=== PATIENT | male | born 2000 | race Caucasian/White ===

== ENCOUNTER 2024-04-01 15:47 | Emergency (ER) | payer SELFPAY ==
--- NOTE | ~2024-04-01 | CT_ITS ---
EXAMINATION: CT brain wo con DATE: 04/01/2024 16:40 INDICATION: Headache. TECHNIQUE: Computed tomography (CT) of the head was performed without intravenous contrast. The mA wa s adjusted according to patient size. Iterative reconstruction technique was employed. The dose-lengt h product was 605.33 mGy-cm. COMPARISON: None FINDINGS: There is no intracranial hemorrhage, acute infarction, or abnormal intracranial mass lesion . The ventricles are normal in size. There is mild mucosal thickening in the ethmoid sinuses. There i s a left mastoid effusion. There are effusions of the tympanic cavities bilaterally. There is materia l in the external auditory canals. IMPRESSION: 1. Normal brain. 2. Material in the external auditory canals. Correlate clinically for otitis externa. 3. Material in the tympanic cavities. Correlate clinically for otitis media. Reviewed, dictated and finalized at location E. IMPRESSION: 1. Normal brain. 2. Material in the external auditory canals. Correlate clinically for otitis ex terna. 3. Material in the tympanic cavities. Correlate clinically for otitis media.
[2024-04-01 16:09] VITALS: BP 160/93; PULSE 125; RESP 16; TEMP 36.6; O2SAT 98
--- NOTE | 2024-04-01 16:29 | ED.EAR ---
HPI - Ear Problem General Chief complaint: Ear Stated complaint: SORIANO, bilateral ear pain, drainage, swelling Time Seen by Provider: 04/01/24 15:58 History of Present Illness HPI Narrative: 23-year-old male presenting to the emergency department for evaluation for bilateral otitis media. Patient states symptoms started approximately a week ago. Patient did have follow-up at urgent care was started on amoxicillin. Patient states that the symptoms have spread to both ears, patient does have associated headache. Patient denies use of your protection at work and denies prolonged use of headphones at home. Patient has no prior history of otitis media. Patient has no significant history of headache or migraine. Related Data Allergies Allergy/AdvReac Type Severity Reaction Status Date / Time No Known Allergies Allergy Verified 04/01/24 16:39 Review of Systems Review of Systems: All systems reviewed & are unremarkable except as noted in HPI and below Exam Narrative: APPEARANCE: Well appearing, no pain, no distress, well-nourished. HEAD: normocephalic, atraumatic. EYES: PERRLA/EOMI, conjunctivae clear. NOSE: Normal no drainage EARS: TMs obstructed bilaterally due to purulent drainage THROAT: Pharynx clear, no exudate. NECK: Supple. No adenopathy, no masses. RESPIRATORY: Airway patent, respirations nonlabored. Clear to auscultation bilaterally, no rales, rhonchi, wheezing. CARDIOVASCULAR: Regular rate and rhythm without murmurs rubs or gallops. ABDOMINAL: Soft, nontender, nondistended, normal bowel sounds MUSCULOSKELETAL: Moves all extremities. Strength/ROM intact, No edema, No calf tenderness. NEURO: Alert. Cranial nerves II through XII intact. Good gait. Good coordination SKIN: Warm, dry. Normal Color PSYCHIATRIC: Normal affect/mood. Course Vital Signs Vital signs: Vital Signs Temperature 97.9 F 04/01/24 16:09 Pulse Rate 125 H 04/01/24 16:09 Respiratory Rate 16 04/01/24 16:09 Blood Pressure 160/93 H 04/01/24 16:09 Pulse Oximetry 98 04/01/24 16:09 Oxygen Delivery Room Air 04/01/24 16:09 Temperature 97.9 F 04/01/24 17:30 Pulse Rate 96 04/01/24 17:30 Respiratory Rate 16 04/01/24 17:30 Blood Pressure 150/89 H 04/01/24 17:30 Pulse Oximetry 100 04/01/24 17:30 Oxygen Delivery Room Air 04/01/24 16:09 Medical Decision Making [facility] Narrative Medical decision making narrative: 23-year-old male presents emergency department for evaluation of headache and bilateral ear pain with discharge. Patient is afebrile with a leukocytosis of 11.4 no acute abnormalities on his CMP head CT showed no evidence of mastoiditis but did show evidence of otitis media otitis externa. Patient was started on antibiotics in the emergency department. Patient was also provided outpatient follow-up with ENT. On re-evaluation patient states his headache is resolved. Differential Diagnosis Differential Diagnosis: Headache, migraine, otitis media, otitis externa, mastoiditis Vital Signs Vital Signs: Vital Signs Temperature 97.9 F 04/01/24 16:09 Pulse Rate 125 H 04/01/24 16:09 Respiratory Rate 16 04/01/24 16:09 Blood Pressure 160/93 H 04/01/24 16:09 Pulse Oximetry 98 04/01/24 16:09 Oxygen Delivery Room Air 04/01/24 16:09 Temperature 97.9 F 04/01/24 17:30 Pulse Rate 96 04/01/24 17:30 Respiratory Rate 16 04/01/24 17:30 Blood Pressure 150/89 H 04/01/24 17:30 Pulse Oximetry 100 04/01/24 17:30 Oxygen Delivery Room Air 04/01/24 16:09 Lab Data Lab results reviewed: Yes I reviewed the patient's lab results. 04/01/24 16:56 04/01/24 16:56 Labs: Lab Results 04/01/24 Range/Units 16:56 WBC 11.4 H (4.5-10.0) K/mm3 RBC 4.77 (4.6-6.20) M/mm3 Hgb 14.4 (14.0-18.0) g/dL Hct 42.2 (42.0-52.0) % MCV 88.5 (80-100) fl MCH 30.2 (26-34) pg MCHC 34.1 (32-36) g/dl RDW 11.2 L (11.5-14.5) % Plt Count 269 (150-375) k/mm3 M
[2024-04-01 16:30] VITALS: BP 148/95; PULSE 113; RESP 16; TEMP 36.7; O2SAT 100
[2024-04-01] MEDS: diphenhydrAMINE HCl INJ 50 MG/ML VIAL 25 MG IV PUSH (16:40)
[2024-04-01] MEDS: PROCHLORPERAZINE EDISYLATE 10 MG/2 ML VIAL IV PUSH (16:40)
[2024-04-01] MEDS: SODIUM CHLORIDE 0.9% IV 1,000 ML 999 ML IV CONT (16:41)
[2024-04-01] MEDS: HYDROmorphone HCL INJ (*CRX) 1 MG/ML SYR 0.5 MG IV PUSH (16:41)
[2024-04-01 17:03] LABS: Basophils Percent Auto 0.3 % (0.2-1.2); Eosinophils Percent Auto 0.1 % (0-4.4); Hematocrit 42.2 % (42.0-52.0); Hemoglobin 14.4 g/dL (14.0-18.0); Immature Granulocyte Absolute 0.04 K/mm3 (0.00-0.031); Immature Granulocyte Percent A 0.4 % (0-0.5); Lymphocytes Absolute Auto 0.96 K/mm3 (0.9-3.2); Lymphocytes Percent Auto 8.4 % (18.3-44.2); Mean Corpuscular HGB Conc 34.1 g/dl (32-36); Mean Corpuscular Hemoglobin 30.2 pg (26-34); Mean Corpuscular Volume 88.5 fl (80-100); Mean Platelet Volume 9.2 fl (7.4-10.4); Neutrophils Absolute Auto 9.3 K/mm3 (1.3-6.7); Neutrophils Percent Auto 81.8 % (45.5-73.1); Platelet Count Result 269 k/mm3 (150-375); Red Blood Count 4.77 M/mm3 (4.6-6.20); Red Cell Distribution Width 11.2 % (11.5-14.5); White Blood Count 11.4 K/mm3 (4.5-10.0)
[2024-04-01 17:12] LABS: Alanine Aminotransferase 21 U/L (6-50); Albumin Level 4.5 g/dL (3.5-5.1); Alkaline Phosphatase 60 U/L (38-126); Anion Gap 9 mmol/L (4-12); Aspartate Amino Transferase 21 U/L (17-59); Blood Urea Nitrogen 11 mg/dL (9-20); Calcium 8.7 mg/dL (8.4-10.2); Carbon Dioxide 25 mmol/L (22-30); Chloride 104 mmol/L (98-107); Estimated CRCL calculation 152 ml/min; Estimated Glomerular Filt Rate > 60; Glucose 102 mg/dL (65-110); Potassium 3.4 mmol/L (3.4-5.0); Sodium 138 mmol/L (137-145)
[2024-04-01 17:30] VITALS: BP 150/89; PULSE 96; RESP 16; TEMP 36.6; O2SAT 100
== END 2024-04-01 18:04 | disposition home or self-care (01) ==
PROVIDERS: Emergency Provider Emergency Medicine
DX: H66.93 Otitis media, unspecified, bilateral (principal); H60.93 Unspecified otitis externa, bilateral
CPT/HCPCS: 36415; 70450; 80053; 85025; 96365; 96375; 99284; J0696; J0780; J1170; J1200; J7030

== ENCOUNTER 2024-08-17 13:26 | Emergency (ER) | payer OTHER, SELFPAY ==
--- NOTE | ~2024-08-17 | XR_ITS ---
EXAMINATION: XR chest 2V DATE: 08/17/2024 13:58 INDICATION: Chest pain. TECHNIQUE: Frontal and lateral views of the chest were obtained. COMPARISON: None. FINDINGS: A calcified right lung nodule and calcified right hilar lymph nodes are consistent with old granulomatous disease. No pleural effusion or pneumothorax. The heart size is normal. IMPRESSION: 1. No acute cardiopulmonary disease. Reviewed, dictated and finalized at location A. NESS TECHNOLOGY ARCHITECT
[2024-08-17 13:27] VITALS: O2SAT 99
--- NOTE | 2024-08-17 13:27 | ECG_ITS ---
Test Date: 2024-08-17 13:33:05 Measurements Intervals May Rate: 89 P: 47 RI: 172 QRS: -17 QRSD: 90 T: 50 QT: 349 QTc: 426 Interpretive Statements SINUS RHYTHM INCOMPLETE RIGHT BUNDLE BRANCH BLOCK BASELINE WANDER- V4-V6 BORDERLINE ECG No previous ECG available for comparison Electronically Signed On 08-17-2024 13:53:07 HOME SERVICE DIRECTOR by Cesar Medrano D.O.
[2024-08-17 13:33] VITALS: BP 178/94; PULSE 85; RESP 20; TEMP 36.4; O2SAT 100
[2024-08-17] MEDS: ASPIRIN 81 MG CHEWABLE TABLET 324 MG PO (13:39)
--- NOTE | 2024-08-17 14:38 | ED_ITS ---
HPI - Chest Pain General Chief Complaint: Chest Pain <Usha Alvarez PA-C - Last Filed: 08/17/24 19:15> Stated Complaint: chest pain <Usha Alvarez PA-C - Last Filed: 08/17/24 19:15> Time Seen by Provider: 08/17/24 14:38 <Usha Alvarez PA-C - Last Filed: 08/17/24 19:15> Focused HPI: Patient is a 23 y/o male who presents to the ED with c/o CP. Patient reports CP began this morning. Starts in the center of his chest, and radiates throughout his chest. Pain is intermittent, lasts for a minute or so before resolving on its own. Worse w/ sitting still. Denies aggravation with exertion. Has not taken anything for pain. Denies pleuritic pain, SOB, cough, cold sx's, BLE pain or swelling. Denies hx of cardiac issues. GENERAL: Well-appearing, morbidly obese with BMI of 45.9, and in no acute distress. HEAD: Normocephalic, atraumatic. CHEST: Clear to auscultation. ?No respiratory distress. HEART: Regular rate and rhythm.? MSK: No chest wall tenderness to palpation. NEURO: ?Alert and oriented x3. Patient screened in triage and initial orders placed.? ?Additional care and disposition to be based upon?diagnostic testing and treatment. <Usha Alvarez PA-C - Last Filed: 08/17/24 19:15> Source: patient <Usha Alvarez PA-C - Last Filed: 08/17/24 19:15> Mode of arrival: ambulatory <Usha Alvarez PA-C - Last Filed: 08/17/24 19:15> Limitations: no limitations <Usha Alvarez PA-C - Last Filed: 08/17/24 19:15> History of Present Illness HPI narrative: per hpi <Lakshmi Kurtz MD - Last Filed: 08/17/24 19:19> Related Data Allergies/Adverse Reactions: Allergies Allergy/AdvReac Type Severity Reaction Status Date / Time No Known Allergies Allergy Verified 04/01/24 16:39 <Usha Alvarez PA-C - Last Filed: 08/17/24 19:15> Review of Systems Review of Systems: All systems reviewed & are unremarkable except as noted in HPI and below <Lakshmi Kurtz MD - Last Filed: 08/17/24 19:19> Exam Narrative: EXAMINATION OF ORGAN SYSTEMS/BODY AREAS: Constitutional: Vital signs per nursing GENERAL:[No acute distress, non-toxic appearing.] HEAD: Normal with no signs of head trauma. EYES: EOMI, conjunctiva normal ENT: Hearing grossly intact LUNGS: Nonlabored breathing. Clear to auscultation bilaterally HEART: [Regular rate and rhythm] ABD: [Soft], [nontender to palpation] EXT: Normal range of motion SKIN: [No rashes or lesions.] NEURO: [Alert and oriented x 3. No gross focal sensory or strength deficits.] PSYCH: Normal affect <Lakshmi Kurtz MD - Last Filed: 08/17/24 19:19> Course Vital Signs Vital signs: Vital Signs Pulse Oximetry 99 08/17/24 13:27 Oxygen Delivery Room Air 08/17/24 13:27 Temperature 97.5 F L 08/17/24 13:33 Pulse Rate 85 08/17/24 13:33 Respiratory Rate 20 08/17/24 13:33 Blood Pressure 178/94 H 08/17/24 13:33 Pulse Oximetry 100 08/17/24 13:33 Oxygen Delivery Room Air 08/17/24 13:33 <Usha Alvarez PA-C - Last Filed: 08/17/24 19:15> Vital Signs Pulse Oximetry 99 08/17/24 13:27 Oxygen Delivery Room Air 08/17/24 13:27 Temperature 97.5 F L 08/17/24 13:33 Pulse Rate 85 08/17/24 13:33 Respiratory Rate 20 08/17/24 13:33 Blood Pressure 178/94 H 08/17/24 13:33 Pulse Oximetry 100 08/17/24 13:33 Oxygen Delivery Room Air 08/17/24 13:33 <Lakshmi Kurtz MD - Last Filed: 08/17/24 19:19> MDM - Chest Pain MDM Narrative Medical decision making narrative: MSE by NIMCO in triage. <sUha Alvarez PA-C - Last Filed: 08/17/24 19:15> MSE by NIMCO in triage. // ED COURSE AND MEDICAL DECISION MAKIN-year-old male presenting with chest pain. EKG done in triage negative for acute ischemic changes. Cardiac workup is initiated. EKG: Performed in triage and interpreted by me. Normal sinus rhythm. Rate 89. Normal axis. TX normal. QRS duration normal. QTc normal. No pathologic Q waves. No ST segment elevation or depression to suggest acute ischemia. No RV strain pattern. HEART score is 1 with no acute ischemic changes on EKG and negative troponin making ACS unlikely. Negative PERC making PE unlikely. Presentation not consistent with dissection or aneurysm without radiation of pain or pulse deficits. CXR negative for mediastinal widening. No abdominal pain or signs of sepsis that would be concerning for esophageal perforation or mediastinitis. No cardiomegaly or JVD to suggest pericardial effusion/tamponade. On repeat evaluation just prior to discharge, the patient is no acute distress. I had a long discussion with the patient and with shared decision making, [he] is comfortable with outpatient management. He does also have elevated blood p ressure, I did note that has been elevated in the past, and per family has been elevated the few times he has seen doctors also, they are agreeable to be started on blood pressure medication at this time, I did discussed risks of hypertension that is untreated, they are agreeable to 1 month supply while being set up for a PCP which I have provided. [He] was given clear return instructions by myself in person as well as on discharge paperwork. <Lakshmi Kurtz MD - Last Filed: 08/17/24 19:19> Lab Data Result diagrams: 08/17/24 15:02 08/17/24 15:02 <Usha Alvarez PA-C - Last Filed: 08/17/24 19:15> Labs: Lab Results 08/17/24 Range/Units 15:02 WBC 9.8 (4.5-10.0) K/mm3 RBC 5.07 (4.6-6.20) M/mm3 Hgb 15.4 (14.0-18.0) g/dL Hct 44.0 (42.0-52.0) % MCV 86.8 (80-100) fl MCH 30.4 (26-34) pg MCHC 35.0 (32-36) g/dl RDW 11.9 (11.5-14.5) % Plt Count 298 (150-375) k/mm3 MPV 9.1 (7.4-10.4) fl Immature Gran % (Auto) 0.2 (0-0.5) % Neut % (Auto) 70.4 (45.5-73.1) % Lymph % (Auto) 19.8 (18.3-44.2) % Kidder % (Auto) 7.4 (2.6-8.5) % Eos % (Auto) 1.7 (0-4.4) % Baso % (Auto) 0.5 (0.2-1.2) % Lymph # (Auto) 1.94 (0.9-3.2) K/mm3 Kidder # (Auto) 0.7 H (0.1-0.6) K/mm3 Eos # (Auto) 0.2 (0-0.3) K/mm3 Baso # (Auto) 0.1 (0.0-0.1) K/mm3 Abs Immat Gran (auto) 0.02 (0.00-0.031) K/mm3 Absolute Neuts (auto) 6.9 H (1.3-6.7) K/mm3 Absolute Nucleated RBC 0.000 (0.0-0.012) K/mm3 Nucleated RBC % 0.0 (0.0-0.2) % PT 14.2 (11.1-14.7) Seconds INR 1.1 APTT 29.4 (22.3-36.8) Seconds Sodium 141 (137-145) mmol/L Potassium 3.8 (3.4-5.0) mmol/L Chloride 102 (98-107) mmol/L Carbon Dioxide 27 (22-30) mmol/L Anion Gap 12 (4-12) mmol/L BUN 12 (9-20) mg/dL Creatinine 0.80 (0.7-1.3) mg/dL Estim Creat Clear Calc 176 ml/min Estimated GFR > 60 (59 - ) Glucose 113 H (65-110) mg/dL Calcium 9.4 (8.4-10.2) mg/dL Total Bilirubin 0.8 (0.2-1.3) mg/dL AST 27 (17-59) U/L ALT 33 (6-50) U/L Alkaline Phosphatase 67 (38-126) U/L Troponin I < 0.012 (0.000-0.034) ng/mL Total Protein 8.0 (6.3-8.2) g/dL Albumin 4.6 (3.5-5.1) g/dL Lipase 49 (23-300) U/L <Usha Alvarez PA-C - Last Filed: 08/17/24 19:15> Lab Results 08/17/24 Range/Units 15:02 WBC 9.8 (4.5-10.0) K/mm3 RBC 5.07 (4.6-6.20) M/mm3 Hgb 15.4 (14.0-18.0) g/dL Hct 44.0 (42.0-52.0) % MCV 86.8 (80-100) fl MCH 30.4 (26-34) pg MCHC 35.0 (32-36) g/dl RDW 11.9 (11.5-14.5) % Plt Count 298 (150-375) k/mm3 MPV 9.1 (7.4-10.4) fl Immature Gran % (Auto) 0.2 (0-0.5) % Neut % (Auto) 70.4 (45.5-73.1) % Lymph % (Auto) 19.8 (18.3-44.2) % Kidder % (Auto) 7.4 (2.6-8.5) % Eos % (Auto) 1.7 (0-4.4) % Baso % (Auto) 0.5 (0.2-1.2) % Lymph # (Auto) 1.94 (0.9-3.2) K/mm3 Kidder # (Auto) 0.7 H (0.1-0.6) K/mm3 Eos # (Auto) 0.2 (0-0.3) K/mm3 Baso # (Auto) 0.1 (0.0-0.1) K/mm3 Abs Immat Gran (auto) 0.02 (0.00-0.031) K/mm3 Absolute Neuts (auto) 6.9 H (1.3-6.7) K/mm3 Absolute Nucleated RBC 0.000 (0.0-0.012) K/mm3 Nucleated RBC % 0.0 (0.0-0.2) % PT 14.2 (11.1-14.7) Seconds INR 1.1 APTT 29.4 (22.3-36.8) Seconds Sodium 141 (137-145) mmol/L Potassium 3.8 (3.4-5.0) mmol/L Chloride 102 (98-107) mmol/L Carbon Dioxide 27 (22-30) mmol/L Anion Gap 12 (4-12) mmol/L BUN 12 (9-20) mg/dL Creatinine 0.80 (0.7-1.3) mg/dL Estim Creat Clear Calc 176 ml/min Estimated GFR > 60 (59 - ) Glucose 113 H (65-110) mg/dL Calcium 9.4 (8.4-10.2) mg/dL Total Bilirubin 0.8 (0.2-1.3) mg/dL AST 27 (17-59) U/L ALT 33 (6-50) U/L Alkaline Phosphatase 67 (38-126) U/L Troponin I < 0.012 (0.000-0.034) ng/mL Total Protein 8.0 (6.3-8.2) g/dL Albumin 4.6 (3.5-5.1) g/dL Lipase 49 (23-300) U/L <Lakshmi Kurtz MD - Last Filed: 08/17/24 19:19> Discharge Plan Discharge Clinical Impression: Atypical chest pain <Usha Alvarez PA-C - Last Filed: 08/17/24 19:15> Patient Disposition: Home, Self-Care <Usha Alvarez PA-C - Last Filed: 08/17/24 19:15> Condition: Stable <Usha Alvarez PA-C - Last Filed: 08/17/24 19:15> Instructions: Antibiotic Form, Chest Pain (ED), Hypertension (ED) <Usha Alvarez PA-C - Last Filed: 08/17/24 19:15> Additional Instructions: Please follow-up with primary care doctor, come back to the emergency room for any further issues. <Usha Alvarez PA-C - Last Filed: 08/17/24 19:15> Prescriptions: New amlodipine 5 mg tablet 5 mg PO DAILY Qty: 30 0RF No Action cefdinir 300 mg capsule 300 mg PO Q12H Qty: 14 0RF <Usha Alvarez PA-C - Last Filed: 08/17/24 19:15> Follow-up/Referrals: PHYSICIAN,COLOR ADVISER [Primary Care Provider] - Logan Pantoja MD [Physician] - 2 Days <Usha Alvarez PA-C - Last Filed: 08/17/24 19:15>
[2024-08-17 15:11] LABS: Basophils Absolute Auto 0.1 K/mm3 (0.0-0.1); Basophils Percent Auto 0.5 % (0.2-1.2); Eosinophils Absolute Auto 0.2 K/mm3 (0-0.3); Eosinophils Percent Auto 1.7 % (0-4.4); Hemoglobin 15.4 g/dL (14.0-18.0); Immature Granulocyte Absolute 0.02 K/mm3 (0.00-0.031); Immature Granulocyte Percent A 0.2 % (0-0.5); Lymphocytes Absolute Auto 1.94 K/mm3 (0.9-3.2); Lymphocytes Percent Auto 19.8 % (18.3-44.2); Mean Corpuscular Hemoglobin 30.4 pg (26-34); Mean Corpuscular Volume 86.8 fl (80-100); Mean Platelet Volume 9.1 fl (7.4-10.4); Monocytes Absolute Auto 0.7 K/mm3 (0.1-0.6); Monocytes Percent Auto 7.4 % (2.6-8.5); Neutrophils Absolute Auto 6.9 K/mm3 (1.3-6.7); Neutrophils Percent Auto 70.4 % (45.5-73.1); Platelet Count Result 298 k/mm3 (150-375); Red Blood Count 5.07 M/mm3 (4.6-6.20); Red Cell Distribution Width 11.9 % (11.5-14.5); White Blood Count 9.8 K/mm3 (4.5-10.0)
[2024-08-17 15:32] LABS: Troponin I < 0.012 ng/mL (0.000-0.034)
[2024-08-17 15:34] LABS: Alanine Aminotransferase 33 U/L (6-50); Albumin Level 4.6 g/dL (3.5-5.1); Alkaline Phosphatase 67 U/L (38-126); Anion Gap 12 mmol/L (4-12); Aspartate Amino Transferase 27 U/L (17-59); Bilirubin,Total 0.8 mg/dL (0.2-1.3); Blood Urea Nitrogen 12 mg/dL (9-20); Calcium 9.4 mg/dL (8.4-10.2); Carbon Dioxide 27 mmol/L (22-30); Chloride 102 mmol/L (98-107); Estimated CRCL calculation 176 ml/min; Estimated Glomerular Filt Rate > 60; Glucose 113 mg/dL (65-110); Lipase 49 U/L (23-300); Potassium 3.8 mmol/L (3.4-5.0); Sodium 141 mmol/L (137-145)
[2024-08-17 15:43] LABS: INR 1.1; Partial Thromboplastin Time 29.4 Seconds (22.3-36.8); Prothrombin Time 14.2 Seconds (11.1-14.7)
== END 2024-08-17 16:25 | disposition home or self-care (01) ==
PROVIDERS: Emergency Provider Emergency Medicine
DX: R07.89 Other chest pain (principal); E66.01 Morbid (severe) obesity due to excess calories; Z68.42 Body mass index [BMI] 45.0-49.9, adult; I45.10 Unspecified right bundle-branch block
CPT/HCPCS: 36415; 71046; 80053; 83690; 84484; 85025; 85610; 85730; 93005; 99284; A9270